=== PATIENT | male | born 1955 | race Caucasian/White ===

== ENCOUNTER 2019-03-31 12:41 | Emergency (ER) | payer MEDICARE ==
[~2019-03-31] VITALS: Ht 180.3 cm; Wt 95.0 kg
[2019-03-31 13:19] VITALS: BP 140/87
[2019-03-31] MEDS ORDERED: DIAZEPAM 5 MG TABLET PO ONE (14:30)
[2019-03-31] MEDS ORDERED: KETOROLAC 30 MG/1 ML IM ONE (14:30)
--- NOTE | 2019-03-31 14:36 | NUR ---
MEDICATED PER EMAR
--- NOTE | 2019-03-31 15:07 | NUR ---
PAIN IMPROVED TO 10/20. CLOTH EXAMINER COMFOFRTABLE DISCHARGING DESPITE RECENT NARCOTIC ADMINISTRATION PATIENT IN CARE OF . EDUCATED ON PRECAUTIONS/IMPORTANCE OF PROMPT F/U WITH PCP FOR PAIN CONTROL NEEDED WELL NEUROSURGEON
== END 2019-03-31 15:08 | disposition home or self-care (01) ==
LOC: ED 15:00
DX: M50.923 Unspecified cervical disc disorder at C6-C7 level (principal); G24.3 Spasmodic torticollis
CPT/HCPCS: 72050; 96372; 99283; J1885